=== PATIENT | female | born 1935 | race Asian ===

== ENCOUNTER 2016-03-16 08:39 | Outpatient (CLI) | payer OTHER, MEDICARE | END 2016-03-16 09:39 | disposition home or self-care (01) | LOC: MRI 08:39 | DX: I10 Essential (primary) hypertension (principal); E11.9 Type 2 diabetes mellitus without complications; R55 Syncope and collapse; Z91.89 Other specified personal risk factors, not elsewhere classified ==

== ENCOUNTER 2016-03-20 08:45 | Outpatient (CLI) | payer OTHER, MEDICARE | END 2016-03-20 19:19 | disposition home or self-care (01) | LOC: MRI 08:45 | DX: I10 Essential (primary) hypertension (principal); E11.9 Type 2 diabetes mellitus without complications; R55 Syncope and collapse; Z91.89 Other specified personal risk factors, not elsewhere classified ==

== ENCOUNTER 2016-04-04 22:09 | Emergency (ER) | payer OTHER, MEDICARE ==
[~2016-04-04] VITALS: Ht 175.3 cm; Wt 72.1 kg
[2016-04-04 22:23] VITALS: BP 208/90; TEMP 97.7
[2016-04-04] MEDS ORDERED: ALLERGY RELF10 M1 OR (22:23)
[2016-04-04] MEDS ORDERED: AMLO2.5T PO (22:25)
[2016-04-04] MEDS ORDERED: METF500T PO (22:26)
[2016-04-04] MEDS ORDERED: HYDR25TA60 PO (22:27)
[2016-04-04] MEDS ORDERED: ASPIRIN LOW81 MG OR (22:28)
[2016-04-04] MEDS ORDERED: BENICAR40 MG PO (22:29)
[2016-04-04] MEDS ORDERED: GLIMEPIRIDE1 MG PO (22:30)
[2016-04-04] MEDS ORDERED: LEVO0.117 PO (22:31)
== END 2016-04-05 00:23 | disposition home or self-care (01) ==
LOC: ED 22:09
DX: I10 Essential (primary) hypertension (principal)
CPT/HCPCS: 99283

== ENCOUNTER 2016-05-17 07:28 | Outpatient (CLI) | payer OTHER, MEDICARE ==
[~2016-05-17 07:28] MED LIST: ALLERGY RELF10 M1 OR; AMLO2.5T PO; ASPIRIN LOW81 MG OR; BENICAR40 MG PO; GLIMEPIRIDE1 MG PO; HYDR25TA60 PO; LEVO0.117 PO; METF500T PO
[2016-05-17 08:39] LABS: PLATELET COUNT 204 K/uL (152-353)
[2016-05-17 11:22] LABS: POTASSIUM 3.7 mmol/L (3.6-5.2)
== END 2016-05-17 19:09 | disposition home or self-care (01) ==
LOC: LABW 07:28
PROVIDERS: Family Medicine
DX: I12.9 Hypertensive chronic kidney disease with stage 1 through stage 4 chronic kidney disease, or unspecified chronic kidney disease (principal); N18.3 Chronic kidney disease, stage 3 (moderate); E11.9 Type 2 diabetes mellitus without complications; E03.8 Other specified hypothyroidism
CPT/HCPCS: 36415; 80053; 80061; 81000; 82306; 83036; 83735; 84439; 84443; 84550; 85027

== ENCOUNTER 2016-05-26 08:58 | Outpatient (CLI) | payer OTHER, MEDICARE | END 2016-05-26 09:58 | disposition home or self-care (01) | LOC: MAMMO 08:58 | DX: Z12.31 Encounter for screening mammogram for malignant neoplasm of breast (principal) | CPT/HCPCS: G0202-TC ==

== ENCOUNTER 2016-09-15 09:34 | Outpatient (CLI) | payer OTHER, MEDICARE | END 2016-09-15 19:08 | disposition home or self-care (01) | LOC: RESP 09:34 | DX: I12.9 Hypertensive chronic kidney disease with stage 1 through stage 4 chronic kidney disease, or unspecified chronic kidney disease (principal); E03.8 Other specified hypothyroidism; R01.1 Cardiac murmur, unspecified; N18.3 Chronic kidney disease, stage 3 (moderate); R53.1 Weakness; R06.09 Other forms of dyspnea | CPT/HCPCS: 93005 ==

== ENCOUNTER 2016-10-04 08:11 | Outpatient (CLI) | payer OTHER, MEDICARE | END 2016-10-04 10:15 | disposition home or self-care (01) | LOC: RAD 08:11 → RESP 08:11 | DX: R01.1 Cardiac murmur, unspecified (principal); R53.1 Weakness; R06.09 Other forms of dyspnea; I12.9 Hypertensive chronic kidney disease with stage 1 through stage 4 chronic kidney disease, or unspecified chronic kidney disease; N18.3 Chronic kidney disease, stage 3 (moderate) | CPT/HCPCS: 93005; 93306 ==

== ENCOUNTER 2017-06-13 17:27 | Emergency (ER) | payer OTHER, MEDICARE ==
[~2017-06-13] VITALS: Ht 175.3 cm; Wt 71.7 kg
[2017-06-13 18:45] VITALS: BP 191/92; TEMP 98.8
== END 2017-06-13 18:46 | disposition home or self-care (01) ==
LOC: ED 17:27
DX: S00.83XA Contusion of other part of head, initial encounter (principal); I45.19 Other right bundle-branch block; I44.4 Left anterior fascicular block; W18.39XA Other fall on same level, initial encounter; Y93.01 Activity, walking, marching and hiking; Y92.098 Other place in other non-institutional residence as the place of occurrence of the external cause
CPT/HCPCS: 81000; 93005; 99283

== ENCOUNTER 2017-07-27 15:37 | Emergency (ER) | payer OTHER, MEDICARE ==
[~2017-07-27] VITALS: Ht 175.3 cm; Wt 71.7 kg
[2017-07-27 16:30] VITALS: BP 146/72; TEMP 97.6
== END 2017-07-27 16:30 | disposition home or self-care (01) ==
LOC: ED 15:37
DX: M43.6 Torticollis (principal)
CPT/HCPCS: 96372; 99282; J1885

== ENCOUNTER 2017-09-17 08:50 | Outpatient (CLI) | payer OTHER ==
[2017-09-17 09:34] LABS: PLATELET COUNT 221 K/uL (152-353)
[2017-09-17 10:03] LABS: POTASSIUM 3.9 mmol/L (3.6-5.2)
== END 2017-09-17 20:14 | disposition home or self-care (01) ==
LOC: LABW 08:50
PROVIDERS: Family Medicine
DX: I10 Essential (primary) hypertension (principal); E11.9 Type 2 diabetes mellitus without complications; E03.8 Other specified hypothyroidism; E55.9 Vitamin D deficiency, unspecified
CPT/HCPCS: 36415; 80053; 80061; 81000; 82306; 83036; 84439; 84443; 85027

== ENCOUNTER 2018-05-20 07:58 | Outpatient (CLI) | payer OTHER ==
[2018-05-20 08:57] LABS: PLATELET COUNT 212 K/uL (152-353)
== END 2018-05-20 19:27 | disposition home or self-care (01) ==
LOC: LABW 07:58
PROVIDERS: Family Medicine
DX: Z00.01 Encounter for general adult medical examination with abnormal findings (principal); I10 Essential (primary) hypertension; E11.9 Type 2 diabetes mellitus without complications; E03.9 Hypothyroidism, unspecified; E55.9 Vitamin D deficiency, unspecified
CPT/HCPCS: 36415; 80053; 80061; 81000; 82306; 83036; 84439; 84443; 85027

== ENCOUNTER 2020-07-12 09:43 | Outpatient (CLI) | payer OTHER | END 2020-07-12 19:16 | disposition home or self-care (01) | LOC: RESP 09:43 | PROVIDERS: ATTEND Internal Medicine Cardiovascular Disease | DX: I10 Essential (primary) hypertension (principal) ==

== ENCOUNTER 2020-07-29 08:38 | Outpatient (CLI) | payer OTHER ==
[2020-07-29 08:57] LABS: PLATELET COUNT 185 K/uL (152-353)
[2020-07-29 09:37] LABS: POTASSIUM 3.6 mmol/L (3.6-5.2)
== END 2020-07-29 22:00 | disposition home or self-care (01) ==
LOC: LABW 08:38
PROVIDERS: ATTEND Family Medicine
DX: D50.8 Other iron deficiency anemias (principal); E11.9 Type 2 diabetes mellitus without complications; N18.30 Chronic kidney disease, stage 3 unspecified; E78.2 Mixed hyperlipidemia; E03.8 Other specified hypothyroidism; R60.0 Localized edema; E55.9 Vitamin D deficiency, unspecified; K21.9 Gastro-esophageal reflux disease without esophagitis; I12.9 Hypertensive chronic kidney disease with stage 1 through stage 4 chronic kidney disease, or unspecified chronic kidney disease
CPT/HCPCS: 36415; 80053; 80061; 81000; 82306; 83036; 83735; 84439; 84443; 84550; 85027

== ENCOUNTER 2020-12-09 09:52 | Outpatient (CLI) | payer OTHER | END 2020-12-09 18:00 | disposition home or self-care (01) | LOC: MAMMO 09:52 | PROVIDERS: ATTEND Family Medicine | DX: Z13.820 Encounter for screening for osteoporosis (principal); Z12.31 Encounter for screening mammogram for malignant neoplasm of breast; Z78.0 Asymptomatic menopausal state ==

== ENCOUNTER 2022-04-20 08:41 | Outpatient (CLI) | payer OTHER ==
[2022-04-20 08:59] LABS: PLATELET COUNT 185 K/uL (152-353)
[2022-04-20 09:14] LABS: POTASSIUM 3.3 mmol/L (3.6-5.2)
== END 2022-04-20 19:22 | disposition home or self-care (01) ==
LOC: LABW 08:41
PROVIDERS: ATTEND Internal Medicine Cardiovascular Disease
DX: Z79.899 Other long term (current) drug therapy (principal); R06.09 Other forms of dyspnea
CPT/HCPCS: 36415; 80053; 80061; 83880; 85027

== ENCOUNTER 2022-05-09 09:42 | Outpatient (CLI) | payer OTHER | END 2022-05-09 18:56 | disposition home or self-care (01) | LOC: RESP 09:42 | PROVIDERS: ATTEND Internal Medicine Cardiovascular Disease | DX: I10 Essential (primary) hypertension (principal) ==

== ENCOUNTER 2022-07-24 11:33 | Outpatient (CLI) | payer OTHER | END 2022-07-24 20:42 | disposition home or self-care (01) | LOC: RAD 11:33 | PROVIDERS: ATTEND Family Medicine | DX: M54.89 Other dorsalgia (principal) ==

== ENCOUNTER 2022-09-23 12:47 | Emergency (ER) | payer OTHER ==
[~2022-09-23] VITALS: Ht 175.3 cm; Wt 58.5 kg
[2022-09-23 13:41] LABS: PLATELET COUNT 140 K/uL (152-353)
[2022-09-23 13:56] LABS: POTASSIUM 4.9 mmol/L (3.6-5.2)
[2022-09-23 15:56] VITALS: BP 168/94; TEMP 98
== END 2022-09-23 15:56 | disposition short-term general hospital (02) ==
LOC: ED 12:47
PROVIDERS: Family Medicine
DX: R00.1 Bradycardia, unspecified (principal); I10 Essential (primary) hypertension
CPT/HCPCS: 36415; 80053; 81002; 84484; 85027; 93005; 99285